=== PATIENT | female | born 1950 | race Caucasian/White ===

== ENCOUNTER 2017-08-14 06:30 | Day surgery (SDC) | payer MEDICARE, BC ==
[~2017-08-14] VITALS: Ht 157.5 cm; Wt 90.7 kg
--- NOTE | ~2017-08-14 | OP ---
PATIENT NAME: KARLO GUAJARDO MEDICAL RECORD: [id number] :54 LOCATION:[facility] ADMISSION DATE: SURGEON: SHADIA MAURO MD DATE OF OPERATION: 08/14/2017 REFERRING PHYSICIAN: Koko Downey MD PREOPERATIVE DIAGNOSES: End-stage renal disease, type 2 diabetes, and morbid obesity. POSTOPERATIVE DIAGNOSES: End-stage renal disease, type 2 diabetes, and morbid obesity. OPERATION PERFORMED: Laparoscopic implantation of peritoneal dialysis catheter and attachment of presternal extension and laparoscopic omentopexy. SURGEON: Shadia Mauro MD ANESTHESIA: General endotracheal per ENTRY EXAMINER. PREOPERATIVE NOTE: Ms. Guajardo is a very pleasant 66-year-old female patient referred to me by Dr. Downey. She is on chronic hemodialysis. [place], I believe, north of [place], and has to drive to [place] 3 times a week for dialysis. She had done peritoneal dialysis successfully up until about a year and a half ago when she had an episode of peritonitis and her catheter had to be removed. She is going to try to resume peritoneal dialysis and is brought to the operating room at this time as an outpatient to implant a PD catheter. Because of her large abdomen, she will need a presternal extension, so that the catheter can exit in the upper portion of the abdomen or lower chest. DESCRIPTION OF PROCEDURE: Under general endotracheal anesthesia, the patient was placed in supine position, prepped and draped in sterile manner. A 5-mm XL Optiview port with a 5 mm 0-degree laparoscope in place was inserted into the abdomen through a small incision in the left upper quadrant. Pneumoperitoneum was established with carbon dioxide and a second 5-mm port was placed through a small incision in the right upper quadrant. I noted that the patient had almost no adhesions thankfully. She did have a large pendulous fatty omentum, which extended down to the pelvis. It was clear that an omentopexy would be necessary. I identified by landmarks the site for insertion of the peritoneal dialysis catheter. I used a dual cuff swan neck coil Medcomp PD catheter and divided the catheter between a dual cuff because we needed a straight catheter at that point. I made a vertically oriented incision in the right abdomen beginning at about the level of the umbilicus and then carried that incision with electrocautery dissection down to the anterior rectus sheath. There at that point, I had selected for insertion of the catheter, I inserted a needle and passed that needle through the rectus sheath and anterior to the peritoneum as far as possible before entering the peritoneal cavity. The guidewire was then inserted under laparoscopic vision and a dilator peel-away introducer was passed over the guidewire and the new coiled PD catheter was inserted. It reached down into the pelvis quite nicely. The Dacron felt cuff, which had been wet with saline and all air bubbles expressed was then pushed down into the substance of the rectus muscle deep to the anterior rectus sheath and a pursestring suture of 3-0 Vicryl was placed there. Laparoscopic exam confirmed the fact that the Dacron felt cuff was not protruding into the peritoneal space. OPERATIVE REPORT [id number] KARLO GUAJARDO I then took an argyle presternal extension catheter with a titanium connector and on the anterior abdominal wall marked the course I expected it to follow in its subq tunnel. That catheter was shortened and then connected with the titanium connector to the already placed intra-abdominal catheter and then the extension was pulled through a subcutaneous tunnel up into the right upper quadrant and then carried laterally and inferiorly to the exit site just below the costal margin in the right upper quadrant. This seemed to suite her anatomy better than trying to go up in front of the sternum. The catheter was then accessed and flushed with saline and then aspirated, it worked fine. The catheter was then heparin-locked with heparin 100 units per cc, clamped and capped. The wounds were irrigated with Ancef/gentamicin solution and infiltrated with 0.25% Marcaine without epinephrine. The wounds were closed with interrupted inverted 3-0 Vicryl and running intracuticular 4-0 Monocryl and Dermabond glue. They were dressed with Maxorb Ag, Tegaderm and Cavilon skin prep. The catheter at the exit site first was glued with Dermabond and then with Cavilon skin prep and quarter inch Steri-Strips secured, a Bioguard chlorhexidine patch was applied and then a Tegaderm dressing. The rest of the external segment of that portion of the catheter was then coiled and covered up underneath a 4 x 4s Medipore dressing. At this point, the patient's ports were removed and the pneumoperitoneum allowed to fully escape. This had been done previously and before the wounds were closed. The patient was awakened and extubated and taken to the recovery room in stable condition. Blood loss throughout was minimal almost none and certainly unreplaced. All sponges, instruments and needles were accounted for. No drain was used and no surgical specimen was submitted for histopathology. PLAN: The patient will be discharged home today and return to see me in the office in 2 weeks. We will try to get her appointed to see the [facility] peritoneal dialysis nurse at the [place] unit one day either this week or next. I believe that she probably can begin reduced volume exchanges in 2 weeks. She is given a prescription for [place] 5/325, 10 tablets 1 p.o. every 4 hours p.r.n. pain. TRANSINT:[id number] Voice Confirmation ID: [id number] DOCUMENT ID: [id number] CC: [place], [place] SHADIA MAURO MD at 1511 CC: KOKO DOWNEY MD and [facility] [id number] DICTATION DATE: 08/14/17 1132 TELETYPESETTER: 08/14/[address] [facility] [place] 08/14/17 [facility] [address] [place] [address]
[~2017-08-14 06:30] MED LIST: BABY ASPIRIN81 MG PO; CELEXA40 MG PO; COLACE100 MG PO; COREG6.25 MG PO; FERROUS SULFAT325 MG PO; HUMALOG 30100 UNITS/ SC; HUMULIN R100 U/ML SC; LANTUS SOL100 UNIT/1; LASIX20 MG PO; LASIX40 MG PO; LEVEMIR100 U/M1 SC; LYRICA150 MG PO; LYRICA25 MG PO; LYRICA75 MG PO; PHOSLO667 MG PO; PLAVIX75 MG PO; PRILOSEC20 MG PO; PRINIVIL20 MG PO; PROCRIT/EP10000 UNIT SC; PROZAC20 MG PO; ROCALTROL0.5 MCG PO; XANAX0.25 MG PO; XANAX0.5 MG; ZANAFLEX4 MG PO; ZOCOR40 MG PO
[2017-08-14 07:38] LABS: BASOPHILS 0.6 % (0-2); EOSINOPHILS 2.8 % (0-7); HEMATOCRIT 32.3 % (36.0-48.0); HEMOGLOBIN 10.4 g/dL (12-16); IMMATURE GRANULOCYTES 0.3 % (0-5); LYMPHOCYTES 22.4 % (15-50); MCH 31.2 pg (26.0-34.0); MCHC 32.2 g/dL (31.0-37.0); MEAN PLATELET VOLUME 12.8 fL (7.4-10.4); MONOCYTES 8.9 % (2-11); RBC 3.33 10x6/uL (4.00-5.40); RDW 14.8 % (11.5-14.5); WBC 7.9 10x3/uL (4.8-10.8)
[2017-08-14 07:46] LABS: APTT 28.5 SECONDS (22.8-39.4); INR 1.04 (0.85-1.17); PROTIME 13.2 SECONDS (11.6-15.0)
[2017-08-14 07:47] LABS: ANION GAP 15.4 mmol/L (8-16); CALCIUM 9.5 mg/dL (8.5-10.1); CARBON DIOXIDE 27.8 mmol/L (21.0-32.0); CREATININE - SERUM 6.8 mg/dL (0.6-1.3); POTASSIUM - SERUM 5.2 mmol/L (3.5-5.1)
[2017-08-14 07:48] LABS: PLATELET COUNT 122 10x3/uL (130-400)
[2017-08-14] MEDS ORDERED: LYRICA150 MG PO (08:39)
[2017-08-14] MEDS ORDERED: NOVOLOG100 U/M1 SC (08:41)
[2017-08-14] MEDS ORDERED: COUMADIN5 MG PO (08:42)
[2017-08-14] MEDS ORDERED: RENVELA800 MG PO (08:42)
[2017-08-14] MEDS ORDERED: OMEPRAZOLE20 M1 PO (08:43)
[2017-08-14] MEDS ORDERED: METOPROLOL TART50 MG PO (08:45)
[2017-08-14] MEDS ORDERED: MIRALAX17 GM PO (08:46)
[2017-08-14] MEDS ORDERED: NEPHRO-VITE RX1 TAB PO (08:47)
[2017-08-14] MEDS ORDERED: XANAX0.5 MG PO (08:48)
[2017-08-14] MEDS ORDERED: EMLA CREAM 30 G30 G1 TOPICAL (08:49)
[2017-08-14] MEDS ORDERED: NORVASC10 MG PO (08:49)
[2017-08-14] MEDS ORDERED: AMBIEN5 MG PO (08:50)
[2017-08-14 08:56] VITALS: BP 121/54; Ht 157.5 cm; Wt 90.7 kg
[2017-08-14] MEDS ORDERED: HYDROCODON-ACE1 EAC7 PO (11:17)
== END 2017-08-14 16:56 | disposition home or self-care (01) ==
LOC: D.OPS 06:30
PROVIDERS: Surgery
DX: E11.22 Type 2 diabetes mellitus with diabetic chronic kidney disease (principal); N18.6 End stage renal disease; Z99.2 Dependence on renal dialysis; E66.01 Morbid (severe) obesity due to excess calories; Z68.36 Body mass index [BMI] 36.0-36.9, adult; Z01.812 Encounter for preprocedural laboratory examination

== ENCOUNTER 2019-09-29 17:03 | Inpatient (IN) | payer MEDICARE, BC ==
[~2019-09-29] VITALS: Ht 157.5 cm; Wt 93.9 kg
[~2019-09-29 17:03] MED LIST changes: +AMBIEN5 MG PO; +COUMADIN5 MG PO; +EMLA CREAM 30 G30 G1 TOPICAL; +HUMULIN R100 UNIT/1 SC; +HYDROCODON-ACE1 EAC7 PO; +METOPROLOL TART50 MG PO; +MIRALAX17 GM PO; +NEPHRO-VITE RX1 TAB PO; +NORVASC10 MG PO; +OMEPRAZOLE20 M1 PO; +RENVELA800 MG PO; +ROCEPHIN 1 GM/D51 G1 IV; +VANCOMYCIN 1 GM/1 G1 IV; +XANAX0.5 MG PO
--- NOTE | 2019-09-29 19:20 | NUR ---
PT IS RESTING IN BED WITH EYES OPEN. ALERT AND ORIENTED X 3. DENIES ANY PAIN OR DISCOMFORT AT THIS TIME. PT STATED: THANK YOU FOR COMING IN, I WAS GETTING LONELY IN HERE BY MYSELF ALL THIS TIME. DRESSING TO LEFT ANKLE IS CDI. PTS RIGHT INDEX FINGER HAS BEEN AMPUTATED AND A SCAB IN INTACT TO THE SITE. RIGHT CHEST HEMISPLIT CATH IS INTACT. IMMATURE RIGHT ARM FISTULA NOTED, ALONG WITH A OLD FISTULA. LEFT CHEST PACER/DEFIB NOTED. PT IS ANURIC. O2 IS ON @ 3LPM PER NC. NO SOB NOTED. LEFT AC SALINE LOCK NOTED. SR'S ARE UP X 2 IN BED. CALL LIGHT AND BEDSIDE TABLE ARE WITHIN EASY REACH.
[2019-09-29 20:00] VITALS: BP 131/49
[2019-09-29 22:06] VITALS: BP 131/49; BMI 37.9
--- NOTE | 2019-09-29 22:27 | NUR ---
PT IS RESTING QUIETLY IN BED WITH EYES CLOSED. RESPS ARE EVEN AND UNLABORED. NO ACUTE DISTRESS NOTED.
[2019-09-29] MEDS ORDERED: MIDODRINE HCL5 MG PO (23:26)
[2019-09-29] MEDS ORDERED: PROTONIX40 MG PO (23:30)
[2019-09-29] MEDS ORDERED: PROCRIT/EP20000 UNIT SQ (23:34)
[2019-09-29] MEDS ORDERED: NYSTATIN1 PWD TOPICAL (23:39)
[2019-09-29] MEDS ORDERED: DULCOLAX10 MG/SUPP RC (23:41)
[2019-09-29] MEDS ORDERED: HYDROCORTISONE30 G8 TOPICAL (23:42)
[2019-09-29] MEDS ORDERED: ACETAMINOPHEN325 MG PO (23:43)
[2019-09-29] MEDS ORDERED: BENADRYL25 MG PO (23:44)
[2019-09-29] MEDS ORDERED: HYDROCODON-ACE1 EAC7 PO (23:45)
[2019-09-29] MEDS ORDERED: AMBIEN5 MG PO (23:46)
[2019-09-29] MEDS ORDERED: MIRALAX17 GM PO (23:48)
[2019-09-30 00:41] VITALS: BP 154/58
--- NOTE | 2019-09-30 04:00 | NUR ---
PT RESTING IN BED WITH EYES CLOSED. NO ACUTE DISTRESS NOTED.
[2019-09-30 06:35] VITALS: BP 116/57
[2019-09-30 07:08] LABS: BASOPHILS 1.6 % (0-2); EOSINOPHILS 10.3 % (0-7); HEMATOCRIT 29.8 % (36.0-48.0); HEMOGLOBIN 9.2 g/dL (12-16); IMMATURE GRANULOCYTES 0.2 % (0-5); LYMPHOCYTES 17.9 % (15-50); MCH 27.9 pg (26.0-34.0); MCHC 30.9 g/dL (31.0-37.0); MCV 90.3 fL (80.0-100.0); MEAN PLATELET VOLUME 11.4 fL (7.4-10.4); PLATELET COUNT 141 10x3/uL (130-400); RDW 19.9 % (11.5-14.5); WBC 8.9 10x3/uL (4.8-10.8)
[2019-09-30 07:15] LABS: INR 1.99 (0.85-1.17); PROTIME 22.3 SECONDS (11.6-15.0)
[2019-09-30 07:20] LABS: ANION GAP 13.7 mmol/L (8-16); CALCIUM 9.2 mg/dL (8.5-10.1); CARBON DIOXIDE 28.7 mmol/L (21.0-32.0); CREATININE - SERUM 4.6 mg/dL (0.6-1.3); POTASSIUM - SERUM 4.4 mmol/L (3.5-5.1); VANCOMYCIN - RANDOM 22.1 ug/mL (10.0-20.0)
--- NOTE | 2019-09-30 08:43 | NUR ---
Left lateral lower leg. Chronic wound measuring 11cm x 6cm x 1cm. Prior to admission last night, treatment has been with wound vac. New vac dressing applied using 2 pieces of black sponge. Settings: -125mmhg low continuous Wound bed is red with no odor noted. Appears to have a low/moderate amount of serous drainage. No bone, muscle or tendon is exposed. A 10cm x 5cm area of dry eschar is noted on the you of left leg. There is no drainage or odor. The eschar is beginning to flake off with pink skin noted underneath. Wound care continues to monitor.
[2019-09-30 11:24] VITALS: BP 137/71
[2019-09-30 13:15] VITALS: BMI 37.8
--- NOTE | 2019-09-30 15:20 | NUR ---
PATIENT ADMITTED TO REHAB FROM AN OUTSIDE FACILITY. SHE HAS HD AT [facility] IN [place], [place] ON -- @ 9:30. DISCHARGE PLANS ARE FOR PATIENT TO RETURN HOME. WILL CONTINUE TO FOLLOW WITH PATIENT.
--- NOTE | 2019-09-30 18:19 | NUR ---
SITTING UP IN WC IN ROOM FINISHING SUPPER AND WATCHING TV. WOUND VAC IN PLACE TO LLE. CALL LIGHT IN REACH
[2019-09-30 18:36] VITALS: BP 132/48
--- NOTE | 2019-09-30 19:25 | NUR ---
AWAKE AND ALERT. SITTING IN WHEELCHAIR WATCHING TV. O2/2L ON PER NASAL CANNULA. SALINE LOCK INTACT TO LEFT AC WITH NO SIGNS OF INFILTRATION. WOUND VAC IN PLACE TO LEFT LOWER EXTREMITY. RIGHT CHEST HEMISPLIT INTACT. NOTED HEALING TO RIGHT ARM FISTULA THAT IS NOT MATURE. NO ACUTE DISTRESS NOTED. CALL LIGHT IN REACH.
[2019-10-01 00:35] VITALS: BP 129/49
--- NOTE | 2019-10-01 00:56 | NUR ---
RESTING IN BED WITH EYES CLOSED AND RESPRIATIONS UNLABOERD. NO DISTRESS NOTED. CALL LIGHT IN REACH.
--- NOTE | 2019-10-01 03:11 | NUR ---
CONTINUES SLEEPING WITH NO DISTRESS NOTED.
--- NOTE | 2019-10-01 05:32 | NUR ---
QUIET HOURS. RESTING IN BED WITH NO DISTRESS NOTED. NO ACUTE CHANGES IN CONDITION THIS SHIFT. WOUND VAC IN PLACE. CALL LIGHT IN REACH.
[2019-10-01 05:55] VITALS: BP 126/44
[2019-10-01 06:25] LABS: BASOPHILS 1.2 % (0-2); EOSINOPHILS 12.5 % (0-7); HEMATOCRIT 29.7 % (36.0-48.0); HEMOGLOBIN 9.1 g/dL (12-16); IMMATURE GRANULOCYTES 0.3 % (0-5); LYMPHOCYTES 20.4 % (15-50); MCHC 30.6 g/dL (31.0-37.0); MCV 91.4 fL (80.0-100.0); MEAN PLATELET VOLUME 11.6 fL (7.4-10.4); MONOCYTES 7.2 % (2-11); NEUTROPHILS 58.4 % (40-80); PLATELET COUNT 141 10x3/uL (130-400); RBC 3.25 10x6/uL (4.00-5.40); RDW 19.9 % (11.5-14.5); WBC 7.8 10x3/uL (4.8-10.8)
[2019-10-01 06:45] LABS: ANION GAP 13.2 mmol/L (8-16); CALCIUM 9.3 mg/dL (8.5-10.1); CARBON DIOXIDE 27.1 mmol/L (21.0-32.0); POTASSIUM - SERUM 4.3 mmol/L (3.5-5.1)
[2019-10-01 06:52] LABS: CREATININE - SERUM 5.8 mg/dL (0.6-1.3)
[2019-10-01 06:56] LABS: INR 1.97 (0.85-1.17); PROTIME 22.2 SECONDS (11.6-15.0)
[2019-10-01 12:00] VITALS: BP 132/52
[2019-10-01 12:17] VITALS: Ht 157.5 cm; Wt 93.9 kg
--- NOTE | 2019-10-01 15:22 | NUR ---
WOUND VAC DRESSING CHANGE DATE:10/01/2019 WOUND LOCATION:left lateral lower leg WOUND MEASUREMENTS: 11cm x 6cm x 1cm WOUND DESCRIPTION: red/beefy MUSCLE, TENDON, OR BONE EXPOSED? no DRAINAGE AMOUNT/DESCRIPTION: small/mod serous ODOR? no TYPE OF SPONGE USED AND AMOUNT: black x 1 SETTINGS: -125mmhg low continuous TEACHING: dressing change days -- Pt tolerated well.
--- NOTE | 2019-10-01 20:12 | NUR ---
AWAKE AND ALERT. RESTING IN BED WITH RESPRIATIONS UNLABORED. WOUND VAC IN PLACE. NO DISTRESS NOTED. CALL LIGHT IN REACH.
[2019-10-01 22:06] VITALS: BP 131/49
--- NOTE | 2019-10-02 01:17 | NUR ---
RESTING IN BED WITH RESPIRATIONS UNLABORED. NO DISTRESS NOTED CALL LIGHT IN REACH.
--- NOTE | 2019-10-02 05:19 | NUR ---
QUIET HOURS. NO ACUTE CHANGES IN CONDITION THIS SHIFT. WOUND VAC IN PLACE. NO ACUTE DISTRESS NOTED.
[2019-10-02 05:57] VITALS: BP 125/53
[2019-10-02 06:14] LABS: INR 2.08 (0.85-1.17); PROTIME 23.1 SECONDS (11.6-15.0)
--- NOTE | 2019-10-02 08:00 | NUR ---
SHIFT ASSMT COMPLETED.
[2019-10-02 12:00] VITALS: BP 152/50
--- NOTE | 2019-10-02 14:15 | NUR ---
TAKEN TO HD/WC.
--- NOTE | 2019-10-02 17:30 | NUR ---
BACK FROM HD /WC TO ROOM.SUPPER GIVEN.
[2019-10-02 18:36] VITALS: BP 121/43
--- NOTE | 2019-10-02 19:45 | NUR ---
AWAKE AND ALERT. SITTING IN WHEELCHAIR IN ROOM. RESPRIATIONS UNLABORED. WOUND VAC IN PLACE TO LEFT LEG. ASSISTED TO BATHROOM AND THEN TO BED. MEDICATED FOR C/O NAUSEA. CALL LIGHT IN REACH.
[2019-10-03 00:13] VITALS: BP 128/48
--- NOTE | 2019-10-03 01:31 | NUR ---
RESTING IN BED WITH RESPRIATIONS UNLABORED. NO DISTRESS NOTED. CALL LIGHT IN REACH.
--- NOTE | 2019-10-03 05:02 | NUR ---
QUIET HOURS. NO ACUTE CHANGES IN CONDITION THIS SHIFT. RESTING IN BED WITH NO DISTRESS NOTED. CALL LIGHT IN REACH.
[2019-10-03 06:28] VITALS: BP 127/45
[2019-10-03 09:08] LABS: BASOPHILS 1.8 % (0-2); CALCIUM 9.2 mg/dL (8.5-10.1); CARBON DIOXIDE 28.2 mmol/L (21.0-32.0); CREATININE - SERUM 4.9 mg/dL (0.6-1.3); EOSINOPHILS 15.4 % (0-7); HEMATOCRIT 34.7 % (36.0-48.0); HEMOGLOBIN 10.4 g/dL (12-16); IMMATURE GRANULOCYTES 0.1 % (0-5); LYMPHOCYTES 21.1 % (15-50); MCH 27.9 pg (26.0-34.0); MEAN PLATELET VOLUME 11.1 fL (7.4-10.4); MONOCYTES 9.2 % (2-11); NEUTROPHILS 52.4 % (40-80); PLATELET COUNT 129 10x3/uL (130-400); POTASSIUM - SERUM 4.2 mmol/L (3.5-5.1); RBC 3.73 10x6/uL (4.00-5.40); RDW 19.8 % (11.5-14.5); VANCOMYCIN - RANDOM 15.9 ug/mL (10.0-20.0); WBC 6.7 10x3/uL (4.8-10.8)
[2019-10-03 09:18] LABS: INR 1.87 (0.85-1.17); PROTIME 21.3 SECONDS (11.6-15.0)
[2019-10-03 11:25] VITALS: BP 114/63
--- NOTE | 2019-10-03 13:46 | NUR ---
WOUND VAC DRESSING CHANGE DATE: 10/03/2019 WOUND LOCATION: LEFT LATERAL ANKLE WOUND MEASUREMENTS:11CM X 6CM X 0.5CM WOUND DESCRIPTION: RED/GRANULATING MUSCLE, TENDON, OR BONE EXPOSED? NO DRAINAGE AMOUNT/DESCRIPTION: SMALL SEROUS ODOR? NO TYPE OF SPONGE USED AND AMOUNT: BLACK X 1 SETTINGS:-125MMHG LOW CONTINUOUS TEACHING:DRESSING CHANGES 3XWEEK (M-W-F) PT TOLERATED WELL.
--- NOTE | 2019-10-03 13:48 | NUR ---
LEFT ROBLERO : THE ESCHAR IS LOOSENING FROM THE SIDES OF THE WOUND. PINK TISSUE IS NOTED UNDERNEATH. CURRENTLY PAINTING WITH BETADINE AND HAVE RECOMMENDED LEAVING OPEN TO AIR DURING THE DAY / COVERING AT NIGHT. LEFT LATERAL CALF: THE ESCHAR IS LOOSENING FROM SIDES OF THE WOUND. PAINTING WITH BETADINE DAILY AND COVERING WOUND CARE CONTINUES TO MONITOR.
--- NOTE | 2019-10-03 17:40 | NUR ---
DR HAMMOND NOTIFIED OF FSBS. NO NEW ORDERS
[2019-10-03 18:23] VITALS: BP 119/65
--- NOTE | 2019-10-03 19:30 | NUR ---
PT IS RESTING IN BED WITH EYES OPEN. ALERT AND ORIENTED X 3. DENIES ACUTE PAIN OR DISCOMFORT AT THIS TIME. NO NEEDS VOICED. WOUND VAC TO LEFT ANKLE IS CDI. LEFT AC SALINE LOCK IS INTACT. RIGHT CHEST HEMISPLIT CATH IS INTACT. RIGHT ARM HAS A IMMATURE AVF, AND AND OLD NON FUNCTIONING FISTULA WELL. O2 IS ON @ 3LPM PER NC. NO SOB NOTED. SR'S ARE UP X 2 IN BED. CALL LIGHT AND BEDSIDE TABLE ARE WITHIN EASY REACH.
--- NOTE | 2019-10-03 21:33 | NUR ---
PT IS RESTING QUIETLY IN BED WITH EYES CLOSED. RESPS ARE EVEN AND UNLABORED. NO ACUTE DISTRESS NOTED.
[2019-10-04 00:01] VITALS: BP 161/61
--- NOTE | 2019-10-04 00:01 | NUR ---
RESTING IN BED WITH EYES CLOSED.
[2019-10-04 00:36] VITALS: BP 134/54
--- NOTE | 2019-10-04 03:00 | NUR ---
PT RESTING IN BED WITH EYES CLOSED. NO NEEDS VOICED.
[2019-10-04 06:00] VITALS: BP 111/68
--- NOTE | 2019-10-04 06:07 | NUR ---
I have reviewed this patient and I concur with the Shift Assessment completed by the Licensed Practical Nurse today this shift.
[2019-10-04 07:13] LABS: PROTIME 31.4 SECONDS (11.6-15.0)
[2019-10-04 07:14] LABS: INR 3.1 (0.85-1.17)
[2019-10-04 12:35] VITALS: BP 121/44
--- NOTE | 2019-10-04 16:24 | NUR ---
RESTING QUIETLY IN BED. STILL WAITING ON DIALYSIS TO CALL FOR PT TO BE DIALYZED. WOUND VAC ON RLE. CALL LIGHT IN REACH. BED IN LOWEST POSITION. SIDE RAILS UP X2.
--- NOTE | 2019-10-04 19:36 | NUR ---
PT IS IN DIALYSIS AT THIS TIME.
--- NOTE | 2019-10-04 22:47 | NUR ---
P0T RESTING IN BED WATCHING TV. NO NEEDS VOICED.
--- NOTE | 2019-10-05 01:35 | NUR ---
I have reviewed this patient and I concur with the Shift Assessment completed by the Licensed Practical Nurse today this shift.
--- NOTE | 2019-10-05 04:42 | NUR ---
PT IS RESTING QUIETLY IN BED WITH EYES CLOSED. NO ACUTE DISTRESS NOTED.
[2019-10-05 06:18] VITALS: BP 107/65
[2019-10-05 07:12] LABS: INR 3.04 (0.85-1.17)
[2019-10-05 12:01] VITALS: BP 130/64
--- NOTE | 2019-10-05 16:21 | NUR ---
SITTING UP IN WC IN ROOM. LLE ELEVATED . WOUND VAC IN PLACE TO LLE. SHE DENIES NEEDS. CALL LIGHT IN REACH
[2019-10-05 18:15] VITALS: BP 135/49
--- NOTE | 2019-10-05 19:30 | NUR ---
PT IS SITTING IN HER WC IN HER ROOM WATCHING TV. ALERT AND ORIENTED X 3. DENIES ACUTE DISCOMFORT AT THIS TIME. WOUND VAC TO LEFT ANKLE IS CDI. LEFT AC SALINE LOCK NOTED. RIGHT CHEST HEMISPLIT CATH IS INTACT. RIGHT ARM IMMATURE FISTULA AND A OLDER NON FUNCTIONING FISTULA NOTED. CALL LIGHT AND BEDSIDE TABLE ARE WITHIN EASY REACH.
[2019-10-05 20:00] VITALS: BP 147/63
--- NOTE | 2019-10-05 21:48 | NUR ---
PT IS SITTING IN HER WC WATCHING TV. NO NEEDS VOICED AT THIS TIME.
[2019-10-06 00:01] VITALS: BP 102/59
--- NOTE | 2019-10-06 00:01 | NUR ---
PT RESTING IN BED WITH EYES CLOSED. NO ACUTE DISTRESS NOTED.
--- NOTE | 2019-10-06 03:26 | NUR ---
I have reviewed this patient and I concur with the Shift Assessment completed by the Licensed Practical Nurse today this shift.
[2019-10-06 06:05] VITALS: BP 109/71
--- NOTE | 2019-10-06 06:11 | NUR ---
PT RESTING IN BED WITH EYES CLOSED. AWOKE EASILY TO VERBAL STIMULI. NO NEEDS VOICED. TOLERATED AM MEDS WITHOUT DIFFICULTY.
[2019-10-06 06:55] LABS: INR 2.46 (0.85-1.17); PROTIME 26.3 SECONDS (11.6-15.0)
[2019-10-06 09:48] VITALS: BP 140/53
--- NOTE | 2019-10-06 16:11 | NUR ---
Nutrition Follow-up: She continues on HD TTS. Per nephrology note she has not been "getting binders." Diet: Cardiac PO intake: ~38% average x last 4 meals recorded; she reports that her appetite is improving. States that she does not want Ensure every meal but that she will order it on her menu if she feels that she needs it. Last BM: none recorded since admit x at least 1 week now. WT: 207# (09/30/19) Meds noted: renagel, coumadin, lantus, SSI, dulcolax and miralax (PRN) Labs noted: POC Glu 294(H) Skin: leg wound with wound VAC in place Recommend increase in bowel regimen to promote BM regularity and hopfully help increase appetite. May need Renal diet to decrease phosphorus intake if PO4 high and unable to take binders. Encouraged PO intake. Encouraged her to order oral nutrition supplements from menu. RD following.
--- NOTE | 2019-10-06 16:47 | RHP ---
PATIENT: WILLIAM CULVER MEDICAL RECORD: [id number] ACCOUNT: [id number] LOCATION:[facility]1115 : 52 ADMISSION DATE: 09/29/19 REHABILITATION HISTORY AND PHYSICAL EXAMINATION POST ADMISSION PHYSICIAN EXAMINATION POST ADMISSION PHYSICAL EXAMINATION AND HISTORY AND PHYSICAL DATE OF ADMISSION: 09/29/2019. 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 HISTORY OF PRESENT ILLNESS: The patient actually was admitted to the [facility] where she has been a patient since September 09. 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 She had an extended hospital course characterized by evaluation and subsequent amputation of the right index finger. She also had a large open wound to her left lateral malleolus with medial base eschar. The patient had debridement and she had skin, subcutaneous tissue, portions of fat, fascia, muscle and bone removed. A wound VAC was placed. She was found to have osteomyelitis. She was placed on IV vancomycin and Rocephin for 6 weeks. There was some consideration to amputate, but decision was made to proceed with conservative therapy and hopefully salvage her limb. On September 09, she was transferred to the [facility] for long-term medical treatment and long-term antibiotics. She is requiring daily INR to titrate Coumadin close and to get her INR at 3 or above. Previously, she was moderately independent with ADLs and mobility using a cane or walker. Currently, she has had prolonged immobility, progressive generalized weakness, especially in her lower extremities. She is very fatigued, has limited flexion and extension of her lower extremities. Her proximal muscle strength is decreased. Mod-to-max assist for ADLs. Mod-to-max assist for sit to stand and bed to chair. She is also nonweightbearing on the left lower extremity with a wound VAC. She wears O2 constantly at this time, and she hopes to return back home at her prior level of functioning. Comorbidities in this patient include anemia, CHF, decrease in mobility, diabetes, end-stage renal disease, essential hypertension, hyperglycemia, hyperkalemia, hyponatremia, morbid obesity, pacemaker placement in the past, and weakness. PAST MEDICAL HISTORY: Significant for end-stage renal disease. She is on hemodialysis Sunday, Sunday, and Sunday. She has got diabetes, COPD, CHF, hypertension, and anemia of chronic disease. PAST SURGICAL HISTORY: Please see previous charts. ALLERGIES: PENICILLIN, CODEINE, SULFA, AND KIWI. CURRENT MEDICATIONS: Include a Retacrit, she is on 12,000 units Sunday, Sunday, and Sunday. She is on Proamatine 5 mg Sunday, Sunday and Sunday. Coumadin 4 mg daily. Metoprolol 50 mg on Sunday, Sunday, , and Sunday. She is on amlodipine Sunday, Sunday, , Sunday. She is on Protonix 40 mg daily. She is on Lantus 20 units subcutaneous daily. She is on a low-resistant sliding scale with regular insulin. She is on Lyrica 75 b.i.d. Vancomycin 500 Sunday, Sunday and Sunday and she also has pharmacy following her levels. Ambien 5 mg at bedtime p.r.n. Nystatin tab powder as needed. She is on MiraLax 17 grams in 8 ounces of water daily. Dulcolax suppository, she is HISTORY AND PHYSICAL [id number] PALOMO,GEARLDINE on 10 mg as needed for constipation. She is on [place] 5/325 one to two tabs every 4 hours p.r.n., Benadryl p.r.n., and Tylenol p.r.n. HABITS: No alcohol or tobacco use. FAMILY HISTORY: Noncontributory. SOCIAL HISTORY: The patient hopes to return back home and get back to her prior level of functioning. REVIEW OF SYSTEMS: GENERAL: Does complain of weakness and fatigue. HEENT: Denies cold, cough, or congestion. CARDIOVASCULAR: Denies any chest pain. PHYSICAL EXAMINATION: VITAL SIGNS: Stable, afebrile. GENERAL: An elderly female, in no acute distress, alert upon exam. HEENT: Normocephalic and atraumatic. Mucosa moist. NECK: Supple. No lymphadenopathy. LUNGS: Clear at this time. No wheezing or rales. HEART: Irregular rate and rhythm. ABDOMEN: Soft, benign, and nondistended. Positive bowel sounds times 4. EXTREMITIES: Does have a wound VAC in place and noted amputation of her finger of her hand. NEUROLOGIC: She has got 2/5 muscular strength in her proximal muscles of her thighs. LABORATORY DATA: Her admit white count is 8.9, H&H of 9 and 29, and platelet count is noted to be 141. Sodium is 134, potassium is 4.4, BUN and creatinine of 47 and 4.6, and blood sugar is noted to be 134. Her INR is 1.99. ASSESSMENT: This 68-year-old female patient admitted to the rehab with a working diagnosis of disuse myopathy secondary to prolonged immobilization secondary to osteomyelitis. The patient has potential to make improvement. We will institute the following multidisciplinary therapies including, but not limited to, physical, occupational, respiratory, speech, nutritional services, prosthetics, and orthotics. Given her complex medical condition and risks for more complications, rehabilitation services cannot be provided at a lower level of care such as a skilled nurse facility. PLAN: 1. Admit to [facility] for an inpatient therapy to include the following disciplines; A. Physical therapy to improve gait, all transfer skills, and bed mobility to modified independent level. B. Occupational therapy to modified independent level. C. Case management to assist with discharge planning and placement options. D. Nutrition to assist with nutritional needs. E. Rehabilitation nursing to assist in monitoring the patient's underlying medical conditions and to assist with any type of bowel or bladder management. 2. The patient's current medications and medical care will be continued. 3. The patient will be placed on standard fall precautions. 4. The patient's estimated length of stay is approximately 7-10 days. 5. We will discuss this patient during care team staff meeting this week. HISTORY AND PHYSICAL [id number] WILLIAM CULVER TRANSINT:[id number] Voice Confirmation ID: [id number] DOCUMENT ID: [id number] KAREN notes whether there has been none or any medical/functional change since admission: - No change since prescreen. KAREN attests patient continues to be appropriate for IRF: - Continues to be appropriate. YADIRA HAMMOND MD at 1647 CC: [id number] DICTATION DATE: 09/30/19 0836 INSURANCE OFFICE MANAGER: 09/30/19 1115 ADM IN [facility] [address] [place] [address]
[2019-10-06 18:37] VITALS: BP 143/59
[2019-10-06 20:41] VITALS: BP 147/60
--- NOTE | 2019-10-06 20:50 | NUR ---
PATIENT RECEIVED SITTING UP IN WHEELCHAIR. ASSESSMENT & VITAL SIGNS DONE. WOUND VAC WORKING. MEPIPLEX INTACT ON BUTTOCK. NO C/O PAIN OR DISTRESS. LEFT LEG ELEVATED. CALL LIGHT WITHIN REACH. WILL CONTINUE TO MONITOR.
--- NOTE | 2019-10-06 21:40 | NUR ---
PATIENT GIVEN SHOWER BY TECH. PATIENT LEG ELEVATED. PATIENT IN WHEELCHAIR BY HER BED. CALL LIGHT WITHIN REACH. WILL CONTINUE TO MONITOR.
[2019-10-07 00:41] VITALS: BP 155/63
--- NOTE | 2019-10-07 01:13 | NUR ---
I have reviewed this patient and I concur with the Shift Assessment completed by the Licensed Practical Nurse today this shift.
--- NOTE | 2019-10-07 03:39 | NUR ---
PATIENT EYES CLOSED. RESPIRATIONS 18 & EVEN. BED LOW. ALARM ON. CALL LIGHT WITHIN REACH. WILL CONTINUE TO MONITOR.
[2019-10-07 05:30] VITALS: BP 155/54
[2019-10-07 06:45] LABS: INR 2.17 (0.85-1.17); PROTIME 23.9 SECONDS (11.6-15.0)
--- NOTE | 2019-10-07 08:00 | NUR ---
PT UP IN WHEELCHAIR NO PROBLEMS WILL MONITER
--- NOTE | 2019-10-07 08:00 | NUR ---
PT RESTING IN BED WITH EYES OPEN CALL LIGHT IN REACH WILL MONITER
--- NOTE | 2019-10-07 11:09 | NUR ---
I have reviewed this patient and I concur with the Shift Assessment completed by the Licensed Practical Nurse today this shift.
[2019-10-07 13:13] VITALS: BP 173/63
--- NOTE | 2019-10-07 14:00 | NUR ---
PT TO DAILYSIS VIA WHEELCHAIR
[2019-10-07 15:02] VITALS: BP 137/51
--- NOTE | 2019-10-07 16:43 | NUR ---
PT RESTING IN BED WITH EYES OPEN CALL LIGHT IN REACH WILL MONITER
--- NOTE | 2019-10-07 19:49 | NUR ---
PATIENT RECEIVED SITTING UP IN HER WHEELCHAIR WATCHING TV. ASSESSMENT & VITAL SIGNS DONE. NO C/O PAIN OR DISTRESS. CALL LIGHT WITHIN REACH. WILL CONTINUE TO MONITOR.
[2019-10-07 22:57] VITALS: BP 129/58
[2019-10-08 00:07] VITALS: BP 129/58
--- NOTE | 2019-10-08 03:52 | NUR ---
PATIENT EYES CLOSED. RESPIRATIONS 18 & EVEN. WOUND VAC CONTINUES. LEFT LEG ELEVATED ON PILLOW. BED LOW. ALARM ON. CALL LIGHT WITHIN REACH. WILL CONTINUE TO MONITOR.
[2019-10-08 06:27] VITALS: BP 139/56
[2019-10-08 08:59] LABS: BASOPHILS 1.1 % (0-2); EOSINOPHILS 10.5 % (0-7); HEMATOCRIT 35.2 % (36.0-48.0); HEMOGLOBIN 10.7 g/dL (12-16); IMMATURE GRANULOCYTES 0.1 % (0-5); LYMPHOCYTES 23.4 % (15-50); MCH 27.7 pg (26.0-34.0); MCHC 30.4 g/dL (31.0-37.0); MCV 91.2 fL (80.0-100.0); MEAN PLATELET VOLUME 10.6 fL (7.4-10.4); NEUTROPHILS 56.9 % (40-80); RBC 3.86 10x6/uL (4.00-5.40); RDW 19.2 % (11.5-14.5); WBC 7.3 10x3/uL (4.8-10.8)
[2019-10-08 09:05] LABS: INR 2.28 (0.85-1.17); PROTIME 24.8 SECONDS (11.6-15.0)
[2019-10-08 09:16] LABS: ANION GAP 15.4 mmol/L (8-16); CALCIUM 9.6 mg/dL (8.5-10.1); CARBON DIOXIDE 26.3 mmol/L (21.0-32.0); CREATININE - SERUM 4.7 mg/dL (0.6-1.3); POTASSIUM - SERUM 4.7 mmol/L (3.5-5.1); VANCOMYCIN - RANDOM 9.6 ug/mL (10.0-20.0)
[2019-10-08 09:24] LABS: PLATELET COUNT 158 10x3/uL (130-400)
--- NOTE | 2019-10-08 10:34 | NUR ---
ALERT AND ORIENTED. C/O NAUSEA IN THE PT ROOM, STATES SHE HAD NORMAL BM ON 10/06. MEDICATED WITH PAIN MEDS AND ZOFRAN. RETURNED TO BED WITH SLIDING BOARD AND MAX ASSIST X 3. STAGE 2 DEC ULCER NOTED ON LLQ OF LEFT BUTTOCK. WOUND NURSE WAS PRESENT AT THE TIME AND NOTIFIED. WOUND NURSE CLEANED LEFT ANKLE WOUND AND REAPPLIED WOUND VAC.
--- NOTE | 2019-10-08 11:38 | NUR ---
Pt has a stage 2 pressure injury on her left coccyx measuring 2cm x 2cm x 0.5cm that was present upon admission to Rehab unit. It is documented in the public relations intern assessment. Wound care recommends using Medihoney to wound daily. The left you wound continues to be covered with dry black eschar as does the left calf wound. Currently wet to dry dressings using betadine are being done daily. WOUND VAC DRESSING CHANGE DATE: 10/08/2019 WOUND LOCATION: left lateral ankle WOUND MEASUREMENTS: 11cm x 6cm x 0.5cm WOUND DESCRIPTION: red/granulating MUSCLE, TENDON, OR BONE EXPOSED? no DRAINAGE AMOUNT/DESCRIPTION: moderate serosanguinous ODOR? no TYPE OF SPONGE USED AND AMOUNT: black x 1 SETTINGS: -125mmhg low continuous TEACHING: healing process Pt tolerated well.
[2019-10-08 12:21] VITALS: BP 148/58
--- NOTE | 2019-10-08 16:04 | NUR ---
CARE TEAM MEETING: PATIENT IS DOING WELL IN THERAPY AND HER TENATIVE DISCHARGE DATE IS 10/14/19 TO HER HOME. WILL CONTINUE TO FOLLOW WITH PATIENT.
--- NOTE | 2019-10-08 19:05 | NUR ---
BEDSIDE REPORT COMPLETE. PT LYING IN BED SUPINE EYES CLOSED RESTING. RR EVEN AND UNLABORED. LEFT AC SL DRESSING C/D/I. IV SITE WITHOUT REDNESS OR SWELLING. CL IN REACH. FALL PRECAUTIONS IN PLACE. WILL CONTINUE TO MONITOR
[2019-10-08 19:25] VITALS: BP 141/51
--- NOTE | 2019-10-08 19:28 | NUR ---
BS AT 1630: 239. 4 UNITS REGULAR GIVEN PER SS. STERILE TECHNIQUE USED TO CHANGE RIGHT SHOULDER CENTRAL LINE. NO DRAINAGE OR SIGNS OF INFECTION. DRSG APPLIED TO LEFT BUTTOCK STAGE 2 PRESSURE ULCER. ENCOURAGED PT TO TURN ON RIGHT SIDE TO RELIEVE PRESSURE ON ULCER. HEELS BRIDGED. STATES NAUSEA HAS SUBSIDED THIS PM. NO SIGNS OF DISTRESS.
[2019-10-09 00:01] VITALS: BP 119/44
--- NOTE | 2019-10-09 01:23 | NUR ---
PT LYING IN BED SUPINE EYES CLOSED RESTING. RR EVEN AND UNLABORED. CL IN REACH
--- NOTE | 2019-10-09 04:32 | NUR ---
PT LYING IN BED EYES CLOSED RESTING COMFORTABLY. RR EVEN AND UNLABORED. CL IN REACH
[2019-10-09 06:11] VITALS: BP 129/52
[2019-10-09 06:13] VITALS: BP 129/52
--- NOTE | 2019-10-09 07:30 | NUR ---
A/A/OX4. SITTING UP IN BED WATCHING TV AND STATES SHE IS JUST WAITING FOR BREAKFAST. DENIES ANY PAIN, AND NO REQUESTS VOICED. WOUND VAC IN PLACE AND WORKING PROPERLY WITH MOD ASHLEY PINK TINGLED DRAINAGE IN CHANBER. RESTING WELL AT THIS TIME AND WILL CPOC.
[2019-10-09 07:43] LABS: PROTIME 28.8 SECONDS (11.6-15.0)
[2019-10-09 07:55] LABS: INR 2.78 (0.85-1.17)
--- NOTE | 2019-10-09 18:55 | NUR ---
BEDSIDE REPORT COMPLETE. PT LYING IN BED WATCHING TV. ALERT AND ORIENTED X4. DENIES ANY NEEDS OR PAIN. NO SIGNS OF ACUTE DISTRESS NOTED. PT STILL C/O BEING NAUSEATED. ZOFRAN HAS ALREADY BEEN ADMININSTERED BY DAY NURSE. WOUND VAC FUNCTIONING PROPERLY. LEFT AC SL PATENT, NO REDNESS OR SWELLING AT SITE NOTED. DRESSING C/D/I. CL IN REACH. FALL PRECAUTIONS IN PLACE. WILL CONTINUE TO MONITOR
[2019-10-09 19:30] VITALS: BP 140/50
[2019-10-09 22:57] VITALS: BP 140/50
--- NOTE | 2019-10-09 23:36 | NUR ---
PT LYING IN BED EYES CLOSED RESTING. RR EVEN AND UNLABORED. CL IN REACH
[2019-10-10 00:04] VITALS: BP 127/48
--- NOTE | 2019-10-10 03:59 | NUR ---
PT LYING IN BED SUPINE EYES CLOSED RESTING. NO SIGNS OF ACUTE DISTRESS NOTED. CL IN REACH
[2019-10-10 05:51] VITALS: BP 135/54
[2019-10-10 06:44] LABS: CALCIUM 9.2 mg/dL (8.5-10.1); CARBON DIOXIDE 26.5 mmol/L (21.0-32.0); POTASSIUM - SERUM 4.5 mmol/L (3.5-5.1)
[2019-10-10 06:54] LABS: EOSINOPHILS 11.1 % (0-7); HEMATOCRIT 34.7 % (36.0-48.0); HEMOGLOBIN 10.6 g/dL (12-16); IMMATURE GRANULOCYTES 0.1 % (0-5); LYMPHOCYTES 25.2 % (15-50); MCH 28.4 pg (26.0-34.0); MCHC 30.5 g/dL (31.0-37.0); MEAN PLATELET VOLUME 10.8 fL (7.4-10.4); MONOCYTES 11.8 % (2-11); NEUTROPHILS 50.8 % (40-80); RBC 3.73 10x6/uL (4.00-5.40); RDW 18.5 % (11.5-14.5); WBC 7.3 10x3/uL (4.8-10.8)
[2019-10-10 07:11] LABS: PLATELET COUNT 126 10x3/uL (130-400)
--- NOTE | 2019-10-10 08:00 | NUR ---
PT RESTING IN BED WITH EYES OPEN CALL LIGHT IN REACH WILL MONITER
[2019-10-10 10:45] LABS: HEPATITIS C ANTIBODY 0.2 S/CO RAT (0.0-0.9)
--- NOTE | 2019-10-10 11:03 | NUR ---
WOUND VAC DRESSING CHANGE DATE: 10/10/2019 WOUND LOCATION: LEFT LATERAL ANKLE WOUND MEASUREMENTS: 10.3CM X 5.8CM X 1.2CM WOUND DESCRIPTION: RED/BEEFY MUSCLE, TENDON, OR BONE EXPOSED? NO DRAINAGE AMOUNT/DESCRIPTION: SMALL SEROSANGUINOUS ODOR? NO TYPE OF SPONGE USED AND AMOUNT: BLACK SETTINGS: -125MMHG LOW CONTINUOUS WOUND ON LEFT ROBLERO WAS DEBRIDED BY DR. BOSE. ESCHAR REMOVED. WOUND MEASURES 6.1CM X 5.3CM X 0.2CM. WOUND VAC DRESSING WAS APPLIED TO THIS WOUND. LEFT LATERAL CALF WOUND WAS DEBRIDED. IT MEASURED 1.7CM X 1.7CM X 0.1CM. HYDROGEL WAS APPLIED. WOUND ON LEFT BUTTOCK/UPPER THIGH MEASURES 2CM X 2CM X 0.5CM. MEDIHONEY WAS APPLIED TO WOUND BED AND IT WAS COVERED WITH BORDERED GAUZE. WOUND CARE CONTINUES TO MONITOR. TEACHING:
--- NOTE | 2019-10-10 18:21 | NUR ---
PT UP IN WHEELCHAIR IN ROOM EATING SUPPER TOLERATIG WELL WILL MONITER
[2019-10-10 18:42] VITALS: BP 133/78
--- NOTE | 2019-10-10 18:50 | NUR ---
BEDSIDE REPORT COMPLETE. PT SITTING UP IN W/C WATCHING TV. ALERT AND ORIENTED X4. LEFT AC INFUSING VANC 125ML/HR. NO REDNESS OR SWELLING AT SITE. DRESSING C/D/I. WOUND VAC WORKING PROPERLY. NO LEAKS DETECTED. CL IN REACH. FALL PRECAUTIONS IN PLACE. WILL CONTINUE TO MONITOR
--- NOTE | 2019-10-10 22:32 | NUR ---
PT IN BED WATCHING TV, MEDS GIVEN, BLOOD SUGAR 244 4UNITS HUMALIN AND 20UNITS OF LANTUS GIVEN, WOUND VAC IN PLACE AND WORKING PROPERLY, AMBIEN REQUESTED AND GIVEN, IV LEAKING AND INFILTRATED REMOVED, SUBCLAVIAN HEMO-SPLIT C/D/I, GLUTEAL DRESSING C/D/I, NO OTHER NEEDS NOTED
[2019-10-11] VITALS (7 sets, daily range): BP systolic 114–149; BP diastolic 43–62
--- NOTE | 2019-10-11 02:07 | NUR ---
PT LYING IN BED SUPINE EYES CLOSED RESTING. NO SIGNS OF ACUTE DISTRESS NOTED. CL IN REACH
--- NOTE | 2019-10-11 03:20 | NUR ---
PT C/O NAUSEA PRN ZOFRAN GIVEN WILL CONTINUE TO MONITOR.
--- NOTE | 2019-10-11 05:05 | NUR ---
PT IN BED SLEEPING, FALL PRECAUTIONS IN PLACE, NO NEEDS NOTED.
[2019-10-11 07:13] LABS: HEPATITIS BE ANTIGEN Negative (Negative)
--- NOTE | 2019-10-11 08:03 | NUR ---
ALERT AND ORIENTED.DENIES PAIN. WOUNDVAC INTACT TO LEFT ANKLE WITH SMALL AMT. OF RED RETURN.O2 INTACT AT 1L/MIN NC.MEDS TAKEN WITHOUT DIFFICULTY.WILL CONTINUE WITH CURRENT PLAN OF CARE.CL IN EASY REACH,BED IN LOW POSITION.
--- NOTE | 2019-10-11 09:15 | NUR ---
TO DIALYSIS VIA WC.
--- NOTE | 2019-10-11 12:00 | NUR ---
I have reviewed this patient and I concur with the Shift Assessment completed by the Licensed Practical Nurse today this shift.
--- NOTE | 2019-10-11 18:16 | NUR ---
PT IN BED WATCHING TV, [place], PLEASANT, NO NEEDS NOTED OR VERBALIZED, FALL PRECAUTIONS IN PLACE
[2019-10-12 06:29] VITALS: BP 136/47
[2019-10-12 12:00] VITALS: BP 91/49
--- NOTE | 2019-10-12 14:14 | NUR ---
I have reviewed this patient and I concur with the Shift Assessment completed by the Licensed Practical Nurse today this shift.
[2019-10-12 18:15] VITALS: BP 99/59
[2019-10-12 19:41] VITALS: BP 129/52
--- NOTE | 2019-10-12 23:18 | NUR ---
PT UP IN CHAIR, NO NEEDS NOTED, MENU GIVEN, GREETED PT, PLACED NAME ON BOARD
[2019-10-13 02:51] VITALS: BP 137/51
[2019-10-13 06:15] VITALS: BP 140/51
[2019-10-13 06:49] LABS: BASOPHILS 0.9 % (0-2); EOSINOPHILS 8.1 % (0-7); HEMATOCRIT 33.8 % (36.0-48.0); HEMOGLOBIN 10.2 g/dL (12-16); IMMATURE GRANULOCYTES 0.2 % (0-5); LYMPHOCYTES 25.1 % (15-50); MCH 27.3 pg (26.0-34.0); MCHC 30.2 g/dL (31.0-37.0); MCV 90.6 fL (80.0-100.0); MEAN PLATELET VOLUME 11.3 fL (7.4-10.4); MONOCYTES 9.5 % (2-11); NEUTROPHILS 56.2 % (40-80); PLATELET COUNT 140 10x3/uL (130-400); RBC 3.73 10x6/uL (4.00-5.40); RDW 17.9 % (11.5-14.5); WBC 6.5 10x3/uL (4.8-10.8)
--- NOTE | 2019-10-13 07:54 | NUR ---
ALERT AND ORIENTED. NO C/O PAIN. RESP EVEN AND UNLABORED. WOUND VAC TO [place]. EATING BREAKFAST. CL IN REACH.
[2019-10-13 08:00] VITALS: BP 124/45
[2019-10-13 08:25] LABS: ANION GAP 13.7 mmol/L (8-16); CARBON DIOXIDE 26.6 mmol/L (21.0-32.0); CREATININE - SERUM 6.1 mg/dL (0.6-1.3); INR 2.71 (0.85-1.17); POTASSIUM - SERUM 4.3 mmol/L (3.5-5.1); PROTIME 28.3 SECONDS (11.6-15.0)
--- NOTE | 2019-10-13 11:15 | NUR ---
Nutrition Follow-up: Chart reviewed. Noted pt is getting wound VAC removed tomorrow (per nephrology) and discharging in AM (per MD notes). Patient getting HD today, gets HD MWF outpatient but was getting TTS [facility]. Diet: Cardiac PO intake: ~83% average x last 10 meals Last BM: 10/11/19 x 3. WT: 207# (09/30/19), no new WT Meds noted: coumadin, renagel, SSI, 20U Lantus q HS Labs noted: Na 134(L), BUN 30(H), Cr 6.1(H), GFR 7(L) Skin: Wounds- Left lateral ankle (wound VAC), left you, left calf, and left upper buttocks/thigh Recommend continue current diet. She orders Ensure from menu. RD following.
--- NOTE | 2019-10-13 11:25 | NUR ---
SPOKE WITH PATIENT THIS AM AND SHE WOULD LIKE A REFERRAL FAXED TO [facility] IN [facility]. REFERRAL HAS BEEN FAXED . SPOKE WITH SHIRLEY AND SHE WILL EVALUATE AND CALL ME BACK. WILL CONTINUE TO FOLLOW WITH PATIENT.
--- NOTE | 2019-10-13 11:28 | NUR ---
WOUND VAC DRESSING CHANGE DATE:10/13/2019 WOUND LOCATION: LEFT LATERAL ANKLE, LEFT ROBLERO WOUND MEASUREMENTS: ANKLE: 10CM X 5.8CM X 1CM ROBLERO: 6CM X 5CM X 0.2CM WOUND DESCRIPTION: BOTH WOUNDS HAVE PATCHES OF GRANULATION MUSCLE, TENDON, OR BONE EXPOSED? NO DRAINAGE AMOUNT/DESCRIPTION: MODERATE SANGUINOUS ODOR? SLIGHT TYPE OF SPONGE USED AND AMOUNT: BLACK X 1 FOR EACH WOUND + BLACK X 1 BRIDGE SETTINGS: -125MMHG LOW CONTINUOUS PT TOLERATED WELL.
[2019-10-13 12:00] VITALS: BP 128/49
--- NOTE | 2019-10-13 12:17 | NUR ---
PARTICIPATED IN THERAPY TODAY. EATING LUNCH AT THIS TIME.
[2019-10-13 14:09] LABS: HEPATITIS BE ANTIBODY Negative (Negative)
--- NOTE | 2019-10-13 14:38 | NUR ---
PATIENT HAS BEEN ACCEPTED TO [facility] AND WILL DISCHARGE THERE 10/14/2019 . FACILITY TRANSPORTATION WILL BE HERE AT 11:00. WILL CONTINUE TO FOLLOW WITH PATIENT.
--- NOTE | 2019-10-13 14:40 | NUR ---
PATIENT WILL HAVE DIALYSIS ON M-W-F @ 9:45 AT [facility] IN [place], [place].
--- NOTE | 2019-10-13 15:18 | NUR ---
SITTING IN WC. NO DISTRESS NOTED. NO CHANGE IN ASSESSMENT. TO HAVE DIALYSIS TODAY BECAUSE WILL BE DISCHARGING TOMORROW TO [facility] AT 11:00. CL IN REACH.
--- NOTE | 2019-10-13 15:42 | NUR ---
TOOK TO DIALYSIS AT THIS TIME.
--- NOTE | 2019-10-13 18:11 | NUR ---
STILL IN DIALYSIS AT THIS TIME.
--- NOTE | 2019-10-13 19:36 | NUR ---
RECIEVED PT FROM DIALYSIS. A/O X4. LUNGS CLEAR. BOWEL ACTIVE X4. BED IN LOW SIDE RAILS X2. RESP EVEN AND UNLABORED. DENIES NEEDS OR PAIN AT THIS TIME. WILL CONTINUE TO MONITOR.
[2019-10-13 20:00] VITALS: BP 127/62
[2019-10-14] VITALS: BP 131/44
--- NOTE | 2019-10-14 02:25 | NUR ---
I have reviewed this patient and I concur with the Shift Assessment completed by the Licensed Practical Nurse today this shift.
[2019-10-14 06:00] VITALS: BP 123/46
--- NOTE | 2019-10-14 07:40 | NUR ---
A/A/OX4. DENIES ANY PAIN OR DISCOMFORT AND NO REQUESTS VOICED. STATES SHE IS GLAD TO BE DISCHARGED TODAY. UP IN W/C AT BEDSIDE WITH WOUND VAC ON AND WORKING PROPERLY. CALL LIGHT IN REACH.
--- NOTE | 2019-10-14 09:30 | NUR ---
PATIENT DISCHARGING TO [facility] AND WILL TRANSPORT THERE VIA [facility]ILITY [facility]. PATIENT CHOICE FORM FOR SNF AND [facility] FORMS SIGNED AND EXPLAINED, FILED IN CHART AND ONE GIVEN TO PATIENT. PATIENT WILL FOLLOW UP WITH PCP WHEN DISCHARGE FROM FACILITY. PATIENT WILL CONTINUE WITH SAME HD DAYS @ 9:[address] [facility] IN [place], [place]. NO COMPARE DATA REVIEWED PATIENT HAD BEEN THERE BEFORE. DISCHARGE INSTRUCTIONS FAXED TO SNF AND REVIEWED WITH PATIENT.
--- NOTE | 2019-10-14 11:30 | NUR ---
DISCHARGE INSTRUCTIONS REVIEWED WITH PT AND VERBALIZES UNDERSTANDING. REPORT CALL TO JOANNA SULLIVAN AT [facility]. PT LEFT FLOOR VIA W/C AND WOUND VAC TUBING CLAMPED AND COVERED FOR TRANSPORT. ALL PERSONAL BELONGINGS TAKEN WITH PT. LEFT FACILITY VIA FACILITY VAN FROM [facility].
== END 2019-10-14 11:30 | DRG 91 ==
LOC: D.REHAB 17:03
PROVIDERS: Internal Medicine Nephrology; ADMIT Emergency Medicine; ATTEND Emergency Medicine
DX: G72.89 Other specified myopathies (principal); N18.6 End stage renal disease; I13.2 Hypertensive heart and chronic kidney disease with heart failure and with stage 5 chronic kidney disease, or end stage renal disease; E87.1 Hypo-osmolality and hyponatremia; M19.90 Unspecified osteoarthritis, unspecified site; I50.9 Heart failure, unspecified; E87.5 Hyperkalemia; E66.01 Morbid (severe) obesity due to excess calories; Z95.0 Presence of cardiac pacemaker; R53.1 Weakness; D64.9 Anemia, unspecified; E11.9 Type 2 diabetes mellitus without complications; S81.802D Unspecified open wound, left lower leg, subsequent encounter

== ENCOUNTER 2020-03-23 08:22 | Day surgery (SDC) | payer MEDICARE, BC ==
[~2020-03-23] VITALS: Ht 157.5 cm; Wt 79.4 kg
[~2020-03-23 08:22] MED LIST changes: +ACETAMINOPHEN325 MG PO; +BENADRYL25 MG PO; +DULCOLAX10 MG/SUPP RC; +HYDROCORTISONE30 G8 TOPICAL; +MIDODRINE HCL5 MG PO; +NYSTATIN1 PWD TOPICAL; +PROCRIT/EP20000 UNIT SQ; +PROTONIX40 MG PO
[2020-03-23 08:51] LABS: BASOPHILS 0.7 % (0-2); EOSINOPHILS 6.2 % (0-7); HEMATOCRIT 34.9 % (36.0-48.0); HEMOGLOBIN 11.2 g/dL (12-16); IMMATURE GRANULOCYTES 0.2 % (0-5); LYMPHOCYTES 19.5 % (15-50); MCH 29.9 pg (26.0-34.0); MCHC 32.1 g/dL (31.0-37.0); MCV 93.1 fL (80.0-100.0); MEAN PLATELET VOLUME 12.1 fL (7.4-10.4); MONOCYTES 7.9 % (2-11); NEUTROPHILS 65.5 % (40-80); PLATELET COUNT 116 10x3/uL (130-400); RBC 3.75 10x6/uL (4.00-5.40); RDW 15.2 % (11.5-14.5); WBC 8.1 10x3/uL (4.8-10.8)
[2020-03-23 09:10] LABS: INR 1.2 (0.85-1.17); PROTIME 15.1 SECONDS (11.6-15.0)
[2020-03-23 09:11] LABS: ANION GAP 15.6 mmol/L (8-16); CALCIUM 8.2 mg/dL (8.5-10.1); CARBON DIOXIDE 24.3 mmol/L (21.0-32.0); CREATININE - SERUM 5.1 mg/dL (0.6-1.3); POTASSIUM - SERUM 4.9 mmol/L (3.5-5.1)
[2020-03-23 10:29] VITALS: Ht 157.5 cm; Wt 79.4 kg
[2020-03-23] MEDS ORDERED: HUMALOG 30100 UNITS/ SC (10:47)
[2020-03-23] MEDS ORDERED: ULTRAM50 MG PO (13:42)
--- NOTE | 2020-03-23 17:20 | NUR ---
1705 DR. MAURO ROUNDS ON PT 1715 PT'S RIDE HERE, RELEASED IN WC TO CAR.
--- NOTE | 2020-03-24 12:31 | OP ---
PATIENT NAME: WILLIAM GUAJARDO MEDICAL RECORD: [id number] LOCATION:[facility] ADMISSION DATE: SURGEON: SHADIA MAURO MD DATE OF OPERATION: 03/23/2020 REFERRED BY: Koko Downey MD PREOPERATIVE DIAGNOSIS: End-stage renal disease and dependence on hemodialysis. POSTOPERATIVE DIAGNOSIS: End-stage renal disease and dependence on hemodialysis. OPERATION PERFORMED: Creation of a left brachial artery to basilic vein, Debbie type AV fistula with plans for delayed revision conversion to a translocated basilic fistula. ANESTHESIA: General endotracheal per [facility] ANAL[employer] LABORATORY ASSISTANT. SURGEON: Shadia Mauro MD PREOPERATIVE NOTE: Ms. Guajardo is a 69-year-old white female patient with end-stage renal disease, who has been dialyzing with a tunneled dialysis catheter now for 8 months. Due to the COVID crisis, she was not seen in the office to be scheduled for access surgery. She has had vein mapping, which demonstrated very small and poor veins in the forearm. She has had a failed radiocephalic AV fistula in the past and I believe that steal syndrome was associated with it. Her ultrasound is indicated that perhaps the left cephalic vein in the upper arm may be the best choice for a new fistula. She is brought to the operating room for either creation of a fistula in the left arm or implantation of an AV graft. Because of the long contact time 8 months with her tunneled catheter, I am inclined to implant an AV graft unless conditions are extremely favorable towards creation of a fistula. The patient had a piece of toast this morning very early because she thought her blood sugar was dropping and for that reason, she is not considered to be at this point a candidate for a procedure under TIVA or LMA, but we will have a general anesthetic. For some reason, she was not scheduled for a nerve block as I have requested. Under general endotracheal anesthesia in supine position, the patient was prepped and draped in sterile manner. Nitroglycerin ointment was applied to the intact skin of the arm and forearm and a Wright drain was used as a proximal venous tourniquet. I examined her with Duplex ultrasound and found that there were poor veins in the forearm. The brachial artery in the antecubital area was very small, in fact there were 2 vessels consistent with a proximal radial artery aberrant origin. These vessels were both very small. The median cubital vein did indeed look suitable for creation of a fistula and the cephalic vein was patent all the way up to the deltopectoral groove, but there was a short segment at the mid humeral level which looked like it was recanalized from a previous episode of phlebitis with about a 50% stenosis present. The basilic vein actually appeared to be very satisfactory for potential creation of a fistula. The axillary vein and artery were all small and unappealing for primary choice of AV grafting and so I decided to go ahead and try fistula, realizing that it will be probably 6-8 weeks or longer before she will have accessible fistula and that is going to extend her contact time quite a bit. OPERATIVE REPORT [id number] WILLIAM GUAJARDO I made a transverse antecubital incision and exposed the median cubital vein and dissected it from surrounding tissues. It was encased in scar and there was a fairly intense inflammatory reaction around it, I assume from repeated vena punctures for laboratory studies. It was eventually dissected and was potentially ready for use for dialysis access. I then exposed the brachial artery or what I thought was the brachial artery and found it to be quite small. I eventually decided that this was most likely a replaced radial artery or radial artery with a proximal aberrant origin, which treated with papaverine and I went on to dissect what I thought was the true brachial artery, which was very much deeper. It was controlled with Silastic loops and by the time it spasmed, even after application of papaverine, it was smaller than the artery I encountered it first. The basilic vein was exposed and several tributaries divided between ligatures of Vicryl and Hemoclips and it was prepared for anastomosis. I mentally committed at that point to a basilic vein Debbie type fistula, probably to the brachial artery rather than to the radial artery. I, however, had to change my mind as the radial artery was probably twice the diameter of what I had thought would be the brachial artery and I was able to approximate these vessels in a [id number] manner using doubly looped Silastic tapes. The basilic vein was opened and flushed proximally and distally with heparinized saline and the artery was then opened and flushed proximally and distally with heparinized saline. A [id number] anastomosis was then completed with a running 7-0 Prolene. When completed and the occluding loops were released, excellent flow developed in the new fistula and the suture line was hemostatic. The wound was irrigated with Ancef/gentamicin solution and irrigated and infiltrated with 0.25% Marcaine without epinephrine. Subcutaneous tissues were approximated with interrupted inverted 3-0 Vicryl and skin was closed with running intracuticular 4-0 Stratafix and Dermabond glue. It was dressed with Maxorb Ag, Tegaderm, and Cavilon skin prep and the patient awakened from her anesthetic and taken to the recovery room. Blood loss during the procedure was about 5 cc and was unreplaced. Sponges, instruments, and needles were accounted for. No drain was used and no surgical specimen was submitted for histopathology. This fistula, which may prove to be angiographically an aberrant radial artery to basilic vein, will need to be revised in 2 weeks, perhaps 2-3 weeks, and I will bring her back to the operating room to complete the translocation of the basilic vein. Probably I will not redo an anastomosis since she has a fairly sharp plump arm and will need all the link we can get. The patient is to be discharged today and return to see me in my office on of next week. She is given a prescription for tramadol 50 mg 1-2 p.o. q.4 hours p.r.n. pain and advised to elevate her arm and continue her same medications and routine dialysis schedule and renal diabetic diet. TRANSINT:[id number] Voice Confirmation ID: [id number] DOCUMENT ID: [id number] OPERATIVE REPORT [id number] WILLIAM GUAJARDO JAMES MD at 1231 CC: KOKO DOWNEY [id number] DICTATION DATE: 03/23/[address]ER: 03/23/20 0421 [facility] 03/23/20 [facility] [address] [place] [address]
== END 2020-03-23 17:15 | disposition home or self-care (01) ==
LOC: D.OPS 08:22
PROVIDERS: Surgery; ATTEND Internal Medicine Nephrology
DX: N18.6 End stage renal disease (principal); Z99.2 Dependence on renal dialysis; I10 Essential (primary) hypertension; E11.9 Type 2 diabetes mellitus without complications; I25.10 Atherosclerotic heart disease of native coronary artery without angina pectoris

== ENCOUNTER 2020-05-04 07:37 | Day surgery (SDC) | payer MEDICARE, BC ==
[~2020-05-04] VITALS: Ht 157.5 cm; Wt 79.4 kg
--- NOTE | ~2020-05-04 | OP ---
PATIENT NAME: WILLIAM CULVER MEDICAL RECORD: [id number] :52 LOCATION:[facility] ADMISSION DATE: SURGEON: SHADIA MAURO MD DATE OF OPERATION: 05/04/2020 PREOPERATIVE DIAGNOSES: End-stage renal disease and dependence on hemodialysis and inaccessible previously created brachiobasilic Debbie type arteriovenous fistula. POSTOPERATIVE DIAGNOSES: End-stage renal disease and dependence on hemodialysis and inaccessible previously created brachiobasilic Debbie type arteriovenous fistula. OPERATION PERFORMED: Revision of AV fistula without thrombectomy to translocate the basilic vein into the immediate subcutaneous space, so that it can be accessed for hemodialysis. This is a planned return to the operating room. ANESTHESIA: General with LMA per [employer]QUIPMENT REPAIRER. SURGEON: Shadia Mauro MD REFERRING PHYSICIAN: Olga. PREOPERATIVE NOTE: This patient is approximately a month status post creation of a Debbie type brachiobasilic AV fistula. At that time translocation was not done due to the size and fragility of the vein and her tissues in general. She now has a well-developed fistula, which ultrasound has shown to be a centimeter in diameter and she is brought back to the operating room as planned in order to translocate the basilic vein. DESCRIPTION OF PROCEDURE: Under general anesthesia in supine position, the patient was prepped and draped in a sterile manner. I examined her with ultrasound and noted the course of the basilic vein and then made a long incision directly over it from the axilla to the previous incision at the antecubital space. The vein was totally exposed and dissected from the surrounding structures. There were relatively few tributaries, which required ligation and division. The vein was treated with topical papaverine and an excellent length of vein was obtained. I elected not to place it in a remote tunnel, requiring a repeat anastomosis, but instead elected to leave it just beneath the skin, closing the subcutaneous tissues beneath it. The wound was irrigated with Ancef/gentamicin solution, then infiltrated and irrigated with 0.25% Marcaine without epinephrine and the wound closed with interrupted inverted 3-0 Vicryl and the skin then closed over the basilic vein with a few interrupted subcuticular 3-0 Vicryls and then running intracuticular 4-0 Stratafix. The incision was then sealed with Dermabond glue and dressed with Maxorb Ag, Tegaderm, and Cavilon skin prep. The patient was awakened and in stable condition returned to the recovery room. There was no blood loss during the procedure. Sponges, instruments, and needles were accounted for. No drain was used and no surgical specimen was submitted for histopathology. PLAN: The patient will be discharged to home today and will follow up with me in my office next week. She is to leave the original dressing intact and keep it dry until the end and I will remove the dressing in the office. She is given a prescription for [place] 5/325, 10 tablets, she can take 1 every 4 hours if needed for pain. OPERATIVE REPORT [id number] LEONARD CULVERJOE TRANSINT:[id number] Voice Confirmation ID: [id number] DOCUMENT ID: [id number] SHADIA MAURO MD CC: BREE MONIQUE [id number] DICTATION DATE: 05/04/20 1044 HYDRAULIC LIFT DRIVER: 05/04/20 1733 [facility] 05/04/20 [place] [id number] [place] [address]
[~2020-05-04 07:37] MED LIST changes: +ULTRAM50 MG PO
[2020-05-04 08:01] LABS: INR 1.11 (0.85-1.17); PROTIME 14.2 SECONDS (11.6-15.0)
[2020-05-04 08:02] LABS: ANION GAP 13.8 mmol/L (8-16); CALCIUM 7.5 mg/dL (8.5-10.1); CARBON DIOXIDE 23.7 mmol/L (21.0-32.0); CREATININE - SERUM 5.2 mg/dL (0.6-1.3); POTASSIUM - SERUM 4.5 mmol/L (3.5-5.1)
[2020-05-04 08:18] LABS: BASOPHILS 0.9 % (0-2); EOSINOPHILS 2.6 % (0-7); HEMATOCRIT 39.6 % (36.0-48.0); HEMOGLOBIN 12.7 g/dL (12-16); IMMATURE GRANULOCYTES 0.2 % (0-5); LYMPHOCYTES 15.4 % (15-50); MCH 28.8 pg (26.0-34.0); MCHC 32.1 g/dL (31.0-37.0); MCV 89.8 fL (80.0-100.0); MEAN PLATELET VOLUME 11.3 fL (7.4-10.4); MONOCYTES 7.2 % (2-11); NEUTROPHILS 73.7 % (40-80); PLATELET COUNT 123 10x3/uL (130-400); RBC 4.41 10x6/uL (4.00-5.40); RDW 16.5 % (11.5-14.5); WBC 8.1 10x3/uL (4.8-10.8)
[2020-05-04 09:11] VITALS: Ht 157.5 cm; Wt 79.4 kg
[2020-05-04] MEDS ORDERED: HYDROCODON-ACE1 EAC7 PO (10:33)
== END 2020-05-04 13:25 | disposition home or self-care (01) ==
LOC: D.OPS 07:37
PROVIDERS: Surgery; ATTEND Internal Medicine Nephrology
DX: N18.6 End stage renal disease (principal); Z99.2 Dependence on renal dialysis